=== PATIENT | female | born 1950 | race Caucasian/White ===

== ENCOUNTER 2022-02-12 09:42 | Day surgery (SDC) | payer MEDICARE ==
[2021-12-29 12:35] VITALS: BMI 30.2
[2022-02-12] MEDS ORDERED: Lidocaine 1% MPF 2 ML VIAL ONE (10:10)
[2022-02-12] MEDS ORDERED: Famotidine/PF 20 mg/2ml Vial ONE (11:47)
[2022-02-12] MEDS ORDERED: Magnevist 469MG/ML 20 ML VIAL ONE (11:48)
[2022-02-12] MEDS ORDERED: Ondansetron PF 4 MG/2 ML Vial ONE (13:00)
[2022-02-12] MEDS ORDERED: Lidocaine 1% PF 5 ML VIAL ONE (13:00)
[2022-02-12] MEDS ORDERED: PROPOFOL 200 MG/20 ML VIAL ONE (13:00)
== END 2022-02-12 14:42 | disposition home or self-care (01) ==
LOC: SDC/OP 09:42
PROVIDERS: ATTEND Family Medicine
DX: R51.9 Headache, unspecified (principal); M15.9 Polyosteoarthritis, unspecified; I10 Essential (primary) hypertension; G62.9 Polyneuropathy, unspecified; G89.4 Chronic pain syndrome; K21.9 Gastro-esophageal reflux disease without esophagitis; F40.240 Claustrophobia; Z79.810 Long term (current) use of selective estrogen receptor modulators (SERMs); Z79.899 Other long term (current) drug therapy; Z91.011 Allergy to milk products
CPT/HCPCS: 70553; A9579; J2405; J2704; S0028

== ENCOUNTER 2022-04-18 08:25 | Outpatient (CLI) | payer MEDICARE ==
[2022-04-18 10:06] LABS: Bilirubin Neg (Negative); Blood, Urine 10 (Negative); Clarity Clear (Clear); Glucose, Urine (Dipstick) Normal (Negative); Ketone, Urine Negative (Negative); Leukocyte 100 (Negative); Nitrite Negative (Negative); Protein, Urine (Dipstick) 15 mg/dl (Neg-Trace); Specific Gravity, Urine 1.025 (1.005-1.030); Urobilinogen Normal mg/dL (Less than 2)
[2022-04-18 10:12] LABS: #Eosinphils 0.1 10x3/uL (0.0-0.5); #Monocytes 0.3 10x3/uL (0.0-1.1); #Neutrophils 2.3 10x3/uL (1.5-8.4); %Basophils 0.9 % (0.0-2.0); %Lymphocytes 38.5 % (18.0-47.0); %Monocytes 6.2 % (0.0-10.0); %Neutrophils 51.2 % (40.0-75.0); Hemoglobin 13.6 g/dL (12.0-15.5); Mean Corpuscular HGB CONC 32.5 g/dL (32.0-36.0); Mean Corpuscular Hemoglobin 29.1 pg (27.0-33.0); Mean Corpuscular Volume 89.5 fl (81.6-98.3); Mean Platelet Volume 9.9 fl (7.4-10.4); Platelet Count 291 10x3/uL (150-450); RBC Distribution Width 13.2 % (11.5-14.5); Red Blood Cell (RBC) Count 4.67 10x6/uL (3.90-5.03); White Blood Cell (WBC) Count 4.4 10x3/uL (3.5-10.5)
[2022-04-18 10:42] LABS: INR-International Normal Ratio 0.9; Prothrombin Time 10.3 sec (9.5-12.1)
[2022-04-18 10:49] LABS: Anion Gap 13 mmol/L (10-20); BUN (Urea Nitrogen) 8 mg/dL (9.8-20.1); Calc. Creatinine Clearance 0 mL/min (70-130); Calcium 9.5 mg/dL (7.8-10.44); Carbon Dioxide 24 mmol/L (23-31); Chloride 109 mmol/L (98-107); Estimated GFR 71; Glucose 97 mg/dL (83-110); Potassium 4.5 mmol/L (3.5-5.1); Sodium 141 mmol/L (136-145)
== END 2022-04-18 08:26 | disposition home or self-care (01) ==
LOC: LABBT 08:25
PROVIDERS: ATTEND Orthopaedic Surgery
DX: Z01.818 Encounter for other preprocedural examination (principal); M17.0 Bilateral primary osteoarthritis of knee; Z20.822 Contact with and (suspected) exposure to COVID-19
CPT/HCPCS: 71046; 80048; 81003; 85025; 85610; 86850; 86900; 86901; 87081; 87811; 93005; 93010

== ENCOUNTER 2022-04-23 05:33 | Observation (INO) | payer MEDICARE ==
[2022-04-18 10:06] LABS: Bilirubin Neg (Negative); Blood, Urine 10 (Negative); Clarity Clear (Clear); Glucose, Urine (Dipstick) Normal (Negative); Ketone, Urine Negative (Negative); Leukocyte 100 (Negative); Nitrite Negative (Negative); Protein, Urine (Dipstick) 15 mg/dl (Neg-Trace); Specific Gravity, Urine 1.025 (1.005-1.030); Urobilinogen Normal mg/dL (Less than 2)
[2022-04-18 10:12] LABS: #Eosinphils 0.1 10x3/uL (0.0-0.5); #Monocytes 0.3 10x3/uL (0.0-1.1); #Neutrophils 2.3 10x3/uL (1.5-8.4); %Basophils 0.9 % (0.0-2.0); %Lymphocytes 38.5 % (18.0-47.0); %Monocytes 6.2 % (0.0-10.0); %Neutrophils 51.2 % (40.0-75.0); Hemoglobin 13.6 g/dL (12.0-15.5); Mean Corpuscular HGB CONC 32.5 g/dL (32.0-36.0); Mean Corpuscular Hemoglobin 29.1 pg (27.0-33.0); Mean Corpuscular Volume 89.5 fl (81.6-98.3); Mean Platelet Volume 9.9 fl (7.4-10.4); Platelet Count 291 10x3/uL (150-450); RBC Distribution Width 13.2 % (11.5-14.5); Red Blood Cell (RBC) Count 4.67 10x6/uL (3.90-5.03); White Blood Cell (WBC) Count 4.4 10x3/uL (3.5-10.5)
[2022-04-18 10:42] LABS: INR-International Normal Ratio 0.9; Prothrombin Time 10.3 sec (9.5-12.1)
[2022-04-18 10:49] LABS: Anion Gap 13 mmol/L (10-20); BUN (Urea Nitrogen) 8 mg/dL (9.8-20.1); Calc. Creatinine Clearance 0 mL/min (70-130); Calcium 9.5 mg/dL (7.8-10.44); Carbon Dioxide 24 mmol/L (23-31); Chloride 109 mmol/L (98-107); Estimated GFR 71; Glucose 97 mg/dL (83-110); Potassium 4.5 mmol/L (3.5-5.1); Sodium 141 mmol/L (136-145)
[2022-04-19 13:02] VITALS: BMI 30.2
[2022-04-23] MEDS ORDERED: Sodium Chloride 0.9% 100 ML ONE ×2 (05:57→07:06)
[2022-04-23] MEDS ORDERED: Tranexamic Acid 1,000 MG/10 ML VIAL ONE ×2 (05:57→09:12)
[2022-04-23] MEDS ORDERED: Vancomycin 1 GM/200 ML BAG ONE (05:57)
[2022-04-23] MEDS ORDERED: Bupivacaine PF 0.5% 30 ML VIAL ONE (06:26)
[2022-04-23] MEDS ORDERED: methylPREDNISolone Acetate 40 mg/ml Vial ONE (06:26)
[2022-04-23] MEDS ORDERED: Lidocaine 1% (PF) 30 ML VIAL ONE (06:26)
[2022-04-23] MEDS ORDERED: Fentanyl 100 MCG/2 ML VIAL ONE ×3 (06:44→09:50)
[2022-04-23] MEDS ORDERED: Midazolam HCl 2 mg/2 ml Vial ONE (06:44)
[2022-04-23] MEDS ORDERED: Lidocaine 1% MPF 2 ML VIAL ONE ×2 (06:44→07:22)
[2022-04-23] MEDS ORDERED: CEFAZOLIN 2 GM VIAL ONE (07:06)
[2022-04-23] MEDS ORDERED: Fentanyl 100 MCG/2 ML VIAL IV PRN (07:17)
[2022-04-23] MEDS ORDERED: ePHEDrine 50 MG/ML VIAL ONE (07:22)
[2022-04-23] MEDS ORDERED: Dexamethasone 20 MG/5 ML VIAL ONE (07:22)
[2022-04-23] MEDS ORDERED: Metoclopramide HCl 10 MG/2 ML VIAL ONE (07:22)
[2022-04-23] MEDS ORDERED: Ondansetron PF 4 MG/2 ML Vial ONE (07:22)
[2022-04-23] MEDS ORDERED: Ropivacaine 0.5% HCl/PF (150 MG/30 ML VIAL) ONE (07:22)
[2022-04-23] MEDS ORDERED: PROPOFOL 200 MG/20 ML VIAL ONE (07:22)
[2022-04-23] MEDS ORDERED: Phenylephrine 10 MG/ML VIAL ONE (07:22)
[2022-04-23] MEDS ORDERED: Promethazine HCl 25 MG/ML VIAL IM PRN ×3 (07:30→09:02)
[2022-04-23] MEDS ORDERED: Acetaminophen 325 MG TAB PO PRN (07:30)
[2022-04-23] MEDS ORDERED: diphenhydrAMINE 25 MG CAP PO PRN (07:30)
[2022-04-23] MEDS ORDERED: Ondansetron PF 4 MG/2 ML Vial IVP PRN ×2 (07:30)
[2022-04-23] MEDS ORDERED: Tranexamic Acid 1,000 MG in Sodium Chloride 0.9% 100 ML IVPB SCH (07:30)
[2022-04-23] MEDS ORDERED: traMADol HCl 50 MG TAB PO PRN ×2 (07:30)
[2022-04-23] MEDS ORDERED: Zolpidem Tartrate 5 MG TAB PO PRN ×2 (07:30)
[2022-04-23] MEDS ORDERED: Ropivacaine 0.2% 550 ML 550 ML NERVE BLCK SCH (07:30)
[2022-04-23] MEDS ORDERED: Topiramate 25 MG TAB PO PRN (07:32)
[2022-04-23] MEDS ORDERED: PHENYLEPHRINE-NS 100 MCG/ML 10 ML SYRINGE ONE (07:37)
[2022-04-23] MEDS ORDERED: Ondansetron HCl/PF 4 MG/2 ML Vial IVP PRN (09:02)
[2022-04-23] MEDS ORDERED: Promethazine HCl 25 MG/ML VIAL IVPB PRN (09:02)
[2022-04-23] MEDS: Famotidine 20 MG TAB PO SCH (10:36)
[2022-04-23] MEDS: Aspirin 81 mg Enteric Coated Tablet PO SCH ×2 (10:37→21:35)
[2022-04-23] MEDS: Ketorolac Tromethamine 30 MG/ML VIAL IVP SCH ×3 (12:05→23:53)
[2022-04-23] MEDS: CEFAZOLIN 2 GM in Sodium Chloride 0.9% 100 ML IVPB SCH ×2 (14:58→21:38)
[2022-04-23] MEDS ORDERED: Vancomycin 1 GM in Premix Bag 1 BAG IVPB SCH (18:00)
[2022-04-23] MEDS: Sodium Chloride 0.9% 1,000 ML IV SCH ×2 (19:13→23:53)
[2022-04-23] MEDS: Amlodipine 5 MG TAB PO SCH (21:35)
[2022-04-24] MEDS: HYDROcodone/Acetaminophen 10/325 mg Tablet PO PRN ×4 (03:29→21:54)
[2022-04-24 05:27] LABS: Hemoglobin 11.7 g/dL (12.0-16.0); Mean Corpuscular HGB CONC 32.2 g/dL (32.0-36.0); Mean Corpuscular Hemoglobin 30.1 pg (27.0-31.0); Mean Corpuscular Volume 93.6 fL (78.0-98.0); Platelet Count 242 thou/uL (130-400); RBC Distribution Width 12.1 % (11.5-14.5); Red Blood Cell (RBC) Count 3.89 mill/uL (4.20-5.40); White Blood Cell (WBC) Count 10.5 thou/uL (4.8-10.8)
[2022-04-24] MEDS: Ketorolac Tromethamine 30 MG/ML VIAL IVP SCH ×3 (05:46→17:09)
[2022-04-24] MEDS: Senokot S 8.6-50 MG TAB PO SCH ×2 (09:04→21:55)
[2022-04-24] MEDS: Ferrous Gluconate 324 MG TAB PO SCH ×2 (09:04→21:54)
[2022-04-24] MEDS: Multivitamin W/ Minerals 1 TAB PO SCH (09:04)
[2022-04-24] MEDS: Aspirin 81 mg Enteric Coated Tablet PO SCH ×2 (09:04→21:54)
[2022-04-24] MEDS: Famotidine 20 MG TAB PO SCH (09:04)
[2022-04-24] MEDS: Sodium Chloride 0.9% 1,000 ML IV SCH (14:38)
[2022-04-24] MEDS: Amlodipine 5 MG TAB PO SCH (21:54)
[2022-04-25] MEDS: Sodium Chloride 0.9% 1,000 ML IV SCH ×2 (01:00→09:53)
[2022-04-25] MEDS: Ketorolac Tromethamine 30 MG/ML VIAL IVP SCH ×2 (01:02→05:41)
[2022-04-25 05:27] LABS: Hemoglobin 10.9 g/dL (12.0-16.0); Mean Corpuscular HGB CONC 32.4 g/dL (32.0-36.0); Mean Corpuscular Hemoglobin 30.8 pg (27.0-31.0); Mean Corpuscular Volume 94.9 fL (78.0-98.0); Mean Platelet Volume 7.4 fL (7.4-10.4); Platelet Count 214 thou/uL (130-400); RBC Distribution Width 12.3 % (11.5-14.5); Red Blood Cell (RBC) Count 3.55 mill/uL (4.20-5.40)
[2022-04-25] MEDS: HYDROcodone/Acetaminophen 10/325 mg Tablet PO PRN (05:42)
[2022-04-25] MEDS: Aspirin 81 mg Enteric Coated Tablet PO SCH (09:34)
[2022-04-25] MEDS: Ferrous Gluconate 324 MG TAB PO SCH (09:52)
[2022-04-25] MEDS: Multivitamin W/ Minerals 1 TAB PO SCH (09:52)
[2022-04-25] MEDS: Senokot S 8.6-50 MG TAB PO SCH (09:52)
[2022-04-25] MEDS: Famotidine 20 MG TAB PO SCH (09:55)
[2022-04-25 12:22] VITALS: BP 131/75; TEMP 97.6
== END 2022-04-25 12:10 ==
LOC: SDC 05:33 → SJJU 10:37
PROVIDERS: ADMIT Orthopaedic Surgery; ATTEND Orthopaedic Surgery
PROC: 0SRC0J9 Replacement of Right Knee Joint with Synthetic Substitute, Cemented, Open Approach (ICD-10-PCS; principal; 2022-04-23)
PROC: 8E0YXBZ Computer Assisted Procedure of Lower Extremity (ICD-10-PCS; 2022-04-23)
DX: M17.0 Bilateral primary osteoarthritis of knee (principal); I10 Essential (primary) hypertension; G62.9 Polyneuropathy, unspecified; G89.4 Chronic pain syndrome; M96.1 Postlaminectomy syndrome, not elsewhere classified; Z79.01 Long term (current) use of anticoagulants; Z79.899 Other long term (current) drug therapy; Z91.011 Allergy to milk products; Z88.8 Allergy status to other drugs, medicaments and biological substances; Z20.822 Contact with and (suspected) exposure to COVID-19
CPT/HCPCS: 20985; 27447; 80048; 81003; 85025; 85027 ×2; 85610; 86850; 86900; 86901; 87081; 87811; 97110 ×3; 97116 ×3; 97535; A4306; C1713; C1776; 36415; 96374; 96375; 96376; G0378; J0690; J1100; J1885; J2001; J2250; J2370; J2405; J2704; J2765; J2795; J2920; J3010; J3370; J3490; S0020

== ENCOUNTER 2022-12-10 09:29 | Day surgery (SDC) | payer MEDICARE ==
[2022-12-07 13:17] VITALS: BMI 24.5
[2022-12-10] MEDS ORDERED: fentaNYL 50 mcg/mL 1 mL Vial ONE (12:05)
[2022-12-10] MEDS ORDERED: Famotidine/PF 20 mg/2ml Vial ONE (12:22)
== END 2022-12-10 13:15 | disposition home or self-care (01) ==
LOC: MRI 09:29
PROVIDERS: ATTEND Psychiatry & Neurology Neurology
DX: G60.9 Hereditary and idiopathic neuropathy, unspecified (principal); M48.07 Spinal stenosis, lumbosacral region; M47.815 Spondylosis without myelopathy or radiculopathy, thoracolumbar region; M47.816 Spondylosis without myelopathy or radiculopathy, lumbar region; M48.061 Spinal stenosis, lumbar region without neurogenic claudication; M51.36 Other intervertebral disc degeneration, lumbar region; M51.37 Other intervertebral disc degeneration, lumbosacral region; Z79.810 Long term (current) use of selective estrogen receptor modulators (SERMs); Z79.899 Other long term (current) drug therapy; Z91.011 Allergy to milk products; Z98.890 Other specified postprocedural states
CPT/HCPCS: 72148; J3010; S0028

== ENCOUNTER 2023-05-27 09:38 | Day surgery (SDC) | payer MEDICARE ==
[2023-05-23 13:38] VITALS: BMI 24.5
== END 2023-05-27 12:15 | disposition home or self-care (01) ==
LOC: MRI 09:38
PROVIDERS: ATTEND Neurological Surgery
DX: R26.89 Other abnormalities of gait and mobility (principal); M48.02 Spinal stenosis, cervical region; M25.512 Pain in left shoulder; I10 Essential (primary) hypertension; Z79.899 Other long term (current) drug therapy; Z90.49 Acquired absence of other specified parts of digestive tract; Z90.89 Acquired absence of other organs; Z96.659 Presence of unspecified artificial knee joint
CPT/HCPCS: 70551